=== PATIENT | female | born 1985 | race Two or more races ===

== ENCOUNTER 2019-09-20 19:10 | Emergency (ER) | payer MEDICAID, OTHER ==
[~2019-09-20] VITALS: Ht 157.5 cm; Wt 62.1 kg
[2019-09-20 20:05] VITALS: BP 116/71
== END 2019-09-20 20:22 | disposition home or self-care (01) ==
LOC: ER 19:11
DX: J40 Bronchitis, not specified as acute or chronic (principal); Z88.6 Allergy status to analgesic agent

== ENCOUNTER 2019-11-02 13:07 | Emergency (ER) | payer MEDICAID ==
[~2019-11-02] VITALS: Ht 157.5 cm; Wt 63.5 kg
--- NOTE | 2019-11-02 13:10 | NUR ---
PT BIB FAMILY C/O R SIDED ABDOMINAL PAIN RADIATES TO THE BACK X 2 WEEKS ALSO, C/O +NAUSEA, VOMITING, AND DIZZINESS. PT AAOX4, VSS, BREATHING EVEN AND UNLABORED ON ROOM AIR W/ AND NOTED.
[2019-11-02] MEDS ORDERED: IV NS 0.9% 1,000 ML BAG IV ONE (13:30)
[2019-11-02] MEDS ORDERED: ONDANSETRON HCL/PF 4 MG/2 ML VIAL IV ONE (13:30)
[2019-11-02] MEDS ORDERED: ONDANSETRON HCL/PF 4 MG/2 ML VIAL ONE (13:34)
[2019-11-02 13:47] LABS: BASOPHILS % (AUTO) 0.4 % (0.0-2.0); EOSINOPHILS % (AUTO) 1.6 % (0.0-6.0); HEMATOCRIT 38 % (33-45); HEMOGLOBIN 12.9 g/dL (11.5-14.8); LYMPHOCYTES # (AUTO) 1.8 /CMM (0.8-4.8); LYMPHOCYTES % (AUTO) 36.6 % (20.0-44.0); MEAN CORPUSCULAR HGB CONC 34 g/dl (31.0-36.0); MEAN CORPUSCULAR VOLUME 91 fL (82-100); MONOCYTES # (AUTO) 0.6 /CMM (0.1-1.30); NEUTROPHILS # (AUTO) 2.4 /CMM (1.8-8.9); NEUTROPHILS % (AUTO) 49.4 % (43.0-81.0); PLATELET COUNT (AUTO) 221 /CMM (150-450); RED BLOOD CELL COUNT(AUTO) 4.19 MIL/uL (4.0-5.2); WHITE BLOOD COUNT (AUTO) 4.8 K/uL (4.3-11.0)
[2019-11-02 13:53] LABS: BILIRUBIN,URINE Negative (NEGATIVE); BLOOD, URINE Negative Ery/uL (NEGATIVE); COLOR,URINE Yellow (YELLOW); KETONES,URINE Negative (NEGATIVE); LEUKOCYTE ESTERASE ,URINE Trace (NEGATIVE); NITRITE, URINE Negative (NEGATIVE); PROTEIN,URINE Negative (NEGATIVE); UGLUCOSE Negative (NEGATIVE); UROBILINOGEN,URINE 0.2 EU/dL (0.2)
[2019-11-02 13:55] LABS: APPEARANCE,URINE SLIGHTLY HAZY (CLEAR)
[2019-11-02 13:56] LABS: BACTERIA,URINE Few /HPF (None Seen); SQUAMOUS EPITHELIAL CELL,UR Few /HPF (None Seen)
[2019-11-02 13:57] LABS: RBC,URINE 0-1 /HPF (0-2)
[2019-11-02 13:58] LABS: CALCIUM, SERUM 8.5 mg/dL (8.5-10.1); CREATININE 0.6 mg/dL (0.6-1.3); POTASSIUM 3.9 mmol/L (3.5-5.1)
[2019-11-02 14:07] LABS: ALBUMIN 3.9 g/dL (3.4-5.0); BILIRUBIN,DIRECT 0.1 mg/dL (0.0-0.2); BILIRUBIN,TOTAL 0.4 mg/dL (0.2-1.0)
[2019-11-02] MEDS ORDERED: CEPHALEXIN MONOHYDRATE 500 MG CAPSULE PO ONE ×2 (14:30→14:34)
[2019-11-02] MEDS ORDERED: ACETAMINOPHEN 325 MG TABLET PO ONE (14:30)
[2019-11-02] MEDS ORDERED: ACETAMINOPHEN ES 500 MG TABLET ONE (14:34)
[2019-11-02 14:59] VITALS: BP 119/87
--- NOTE | 2019-11-02 14:59 | NUR ---
Patient discharged to home in stable condition. Written and verbal after care instructions given. Patient verbalizes understanding of instruction.IV removed. Catheter intact and site benign. Pressure and 4x4 applied to site. No bleeding noted.
== END 2019-11-02 14:59 | disposition home or self-care (01) ==
LOC: ER 13:13
DX: N12 Tubulo-interstitial nephritis, not specified as acute or chronic (principal); R11.2 Nausea with vomiting, unspecified; R42 Dizziness and giddiness; Z90.89 Acquired absence of other organs; Z88.6 Allergy status to analgesic agent
CPT/HCPCS: 36415; 80048; 80076; 81001; 83690; 84703; 85025; 87086; 96361; 96374; 99283; J2405; J7030; 81000-TC

== ENCOUNTER 2019-12-18 23:42 | Emergency (ER) | payer SELFPAY ==
[~2019-12-18] VITALS: Ht 160 cm; Wt 61.2 kg
[2019-12-18 23:49] VITALS: BP 110/71
== END 2019-12-19 00:47 | disposition home or self-care (01) ==
LOC: ER 23:47
DX: R21 Rash and other nonspecific skin eruption (principal); Z90.89 Acquired absence of other organs; Z88.6 Allergy status to analgesic agent